=== PATIENT | female | born 1965 | race Caucasian/White ===

== ENCOUNTER 2017-09-09 17:21 | Emergency (ER) | payer OTHER ==
[~2017-09-09] VITALS: Ht 177.8 cm; Wt 77.1 kg
[~2017-09-09 17:21] MED LIST: MULT-506 PO; TIZA4CAP PO; WARF-237 PO; WARF10TA PO
[2017-09-09 17:23] VITALS: TEMP 36.9; Ht 177.8 cm; Wt 77.1 kg
[2017-09-09] MEDS ORDERED: MoRPHine SULFATE 4 MG/ML 1 ML CARP\\VIAL IV STA (17:41)
[2017-09-09] MEDS ORDERED: SODIUM CHLORIDE 0.9% 1000ML 1,000 ML IV STA (17:41)
[2017-09-09] MEDS ORDERED: CYAN250T PO (17:46)
[2017-09-09] MEDS ORDERED: CHOL1000 PO (17:46)
[2017-09-09] MEDS ORDERED: WARF-237 PO (17:47)
--- NOTE | 2017-09-09 17:49 | EMERGENCY ROOM VISIT NOTE ---
History Report prepared by Wyatt: Cate Prajapati Under the Supervision of: Dr. Scar Echevarria M.D. First contact with patient: 17:28 Chief Complaint: WRIST PAIN Stated Complaint: FELL,WRIST PAIN AND LOW BACK History of Present Illness The patient is a 51 year old female who presents to the Emergency Room with complaints of persistent wrist pain that started a couple of hours ago. The patient rates her pain a 9/10 in severity. The patient states she was getting her kayaks off of the roof of her jeep when she fell on to her right side. She notes she tried to catch her fall with her right arm. She is currently feeling pain in her right wrist, elbow, and lower back. She states she had a bad fall in 2006 that affected her back. When she was getting treated for the injury, they found a blood clot so they put her on blood thinners. They were unsure if the blood clot was related to the fall. The patient states after she fell today , she was unable to get up and had to wait a while for her daughter to come help her. She denies any leg weakness, HS or LOC. Source of History: patient Onset: a couple of hours ago Position: wrist (right) Symptom Intensity: 9/10 Timing: other (persistent) Associated Symptoms: + back pain, No weakness Note: Additional symptoms: elbow pain. Review of Systems See HPI for pertinent positives and negatives. A total of ten systems were reviewed and were otherwise negative. Past Medical & Surgical Portal vein blood clot. Family History No pertinent family history Social History Smoking Status: Current Some Day Smoker Alcohol Use: occasionally Housing Status: lives with family Occupation Status: employed Current/Historical Medications Scheduled Cholecalciferol (Vitamin D3), 1 DOSE PO DAILY Cyanocobalamin (Vitamin B-12), 1 DOSE PO DAILY Warfarin Sod (Coumadin), 5 MG PO WK Warfarin Sod (Coumadin), 10 MG PO [id number] Scheduled PRN Lidocaine (Lidoderm Patch 5%), 1 PATCH TD DAILY PRN for Pain Oxycodone Ir (Roxicodone Ir), 1-2 TAB PO Q4H PRN for Pain Allergies Coded Allergies: Heparin (Verified Allergy, Severe, "lethal", 09/09/17) Sulfa Antibiotics (Verified Allergy, Mild, HIVES, RASH, 09/09/17) Sulfamethoxazole (Unverified Allergy, Mild, HIVES, RASH, 09/09/17) Trimethoprim (Unverified Allergy, Mild, HIVES, RASH, 09/09/17) Physical Exam Vital Signs Date Time Temp Pulse Resp B/P (MAP) Pulse Ox O2 Delivery O2 Flow Rate FiO2 09/09/17 21:02 89 18 103/72 97 Room Air 09/09/17 20:02 98 20 118/72 100 Room Air 09/09/17 17:23 36.9 99 18 164/119 98 Room Air Physical Exam GENERAL: Awake, alert, uncomfortable appearing, in no distress HENT: Normocephalic, atraumatic. Oropharynx unremarkable. EYES: Normal conjunctiva. Sclera non-icteric. NECK: Supple. No nuchal rigidity. FROM. No JVD. RESPIRATORY: Clear to auscultation. CARDIAC: Regular rate, normal rhythm. Extremities warm and well perfused. Pulses equal. ABDOMEN: Soft, non-distended. No tenderness to palpation. No rebound or guarding. No masses. BACK: Lower T-spine and upper L-spine contusion with mild tenderness. Right superior gluteal area of fluctuance with mild ttp c/w hematoma. RECTAL: Deferred. MUSCULOSKELETAL: Chest examination reveals no tenderness. There is no CVA tenderness to palpation. EXTREMITIES: Swelling to dorsal/radial aspect of right wrist/hand with small hematoma. No snuff box ttp. Mild ttp to radial aspect of proximal forearm. NEURO: Normal sensorium. No sensory or motor deficits noted. Strength 5/5 and SILT x 4 ext. SKIN: No rash or jaundice noted. Medical Decision & Procedures ER Provider Diagnostic Interpretation: Radiology results as stated below per my review and radiologist interpretation: R FOREARM 2 VIEWS ROUTINE, R ELBOW MIN 3 VIEWS ROUTINE, R WRIST MIN 3 VIEWS ROUTINE, R HAND MIN 3 VIEWS ROUTINE HISTORY: 51 years-old Female pain, fall acute trauma of the right upper extremity status post fall COMPARISON: None available TECHNIQUE: 3 views of the right elbow, 2 views of the right forearm, 4 views the right wrist and 3 views of the right hand FINDINGS: ELBOW: Mild marginal spurring of the lateral epicondyle. No acute fracture or dislocation. No large joint effusion or opaque foreign body. Radial head appears intact. FOREARM: Bones are mildly demineralized. Acute fracture of the distal radius. Proximal radius and ulna are intact. Mild soft tissue swelling about the distal radius. WRIST: There is an acute nondisplaced transversely oriented fracture of the distal radial metaphysis with possible extension into the distal radioulnar joint as seen on the PA view. No angulation. Distal ulna appears intact. Mild first carpometacarpal and triscaphe osteoarthritis. Bones are mildly demineralized. Mild soft tissue swelling about the distal forearm and wrist. HAND: Bones are mildly demineralized. No acute fracture or dislocation. Mild degenerative changes with interphalangeal joint space narrowing and subchondral sclerosis. IMPRESSION: 1. Acute nondisplaced transversely oriented fracture of the distal radial metaphysis with possible extension into the distal radioulnar joint. Mild associated soft tissue swelling. 2. The degree of bone demineralization is greater than expected for patient's stated age. 3. Mild degenerative changes about the hand and wrist without additional acute fracture or dislocation identified within the right upper extremity. The above report was generated using voice recognition software. It may contain grammatical, syntax or spelling errors. Electronically signed by: Kyaw Sosa M.D. 09/09/2017 7:02 PM Dictated Date/Time: 09/09/2017 6:57 PM R FOREARM 2 VIEWS ROUTINE, R ELBOW MIN 3 VIEWS ROUTINE, R WRIST MIN 3 VIEWS ROUTINE, R HAND MIN 3 VIEWS ROUTINE HISTORY: 51 years-old Female pain, fall acute trauma of the right upper extremity status post fall COMPARISON: None available TECHNIQUE: 3 views of the right elbow, 2 views of the right forearm, 4 views the right wrist and 3 views of the right hand FINDINGS: ELBOW: Mild marginal spurring of the lateral epicondyle. No acute fracture or dislocation. No large joint effusion or opaque foreign body. Radial head appears intact. FOREARM: Bones are mildly demineralized. Acute fracture of the distal radius. Proximal radius and ulna are intact. Mild soft tissue swelling about the distal radius. WRIST: There is an acute nondisplaced transversely oriented fracture of the distal radial metaphysis with possible extension into the distal radioulnar joint as seen on the PA view. No angulation. Distal ulna appears intact. Mild first carpometacarpal and triscaphe osteoarthritis. Bones are mildly demineralized. Mild soft tissue swelling about the distal forearm and wrist. HAND: Bones are mildly demineralized. No acute fracture or dislocation. Mild degenerative changes with interphalangeal joint space narrowing and subchondral sclerosis. IMPRESSION: 1. Acute nondisplaced transversely oriented fracture of the distal radial metaphysis with possible extension into the distal radioulnar joint. Mild associated soft tissue swelling. 2. The degree of bone demineralization is greater than expected for patient's stated age. 3. Mild degenerative changes about the hand and wrist without additional acute fracture or dislocation identified within the right upper extremity. The above report was generated using voice recognition software. It may contain grammatical, syntax or spelling errors. Electronically signed by: Kyaw Sosa M.D. 09/09/2017 7:02 PM Dictated Date/Time: 09/09/2017 6:57 PM R FOREARM 2 VIEWS ROUTINE, R ELBOW MIN 3 VIEWS ROUTINE, R WRIST MIN 3 VIEWS ROUTINE, R HAND MIN 3 VIEWS ROUTINE HISTORY: 51 years-old Female pain, fall acute trauma of the right upper extremity status post fall COMPARISON: None available TECHNIQUE: 3 views of the right elbow, 2 views of the right forearm, 4 views the right wrist and 3 views of the right hand FINDINGS: ELBOW: Mild marginal spurring of the lateral epicondyle. No acute fracture or dislocation. No large joint effusion or opaque foreign body. Radial head appears intact. FOREARM: Bones are mildly demineralized. Acute fracture of the distal radius. Proximal radius and ulna are intact. Mild soft tissue swelling about the distal radius. WRIST: There is an acute nondisplaced transversely oriented fracture of the distal radial metaphysis with possible extension into the distal radioulnar joint as seen on the PA view. No angulation. Distal ulna appears intact. Mild first carpometacarpal and triscaphe osteoarthritis. Bones are mildly demineralized. Mild soft tissue swelling about the distal forearm and wrist. HAND: Bones are mildly demineralized. No acute fracture or dislocation. Mild degenerative changes with interphalangeal joint space narrowing and subchondral sclerosis. IMPRESSION: 1. Acute nondisplaced transversely oriented fracture of the distal radial metaphysis with possible extension into the distal radioulnar joint. Mild associated soft tissue swelling. 2. The degree of bone demineralization is greater than expected for patient's stated age. 3. Mild degenerative changes about the hand and wrist without additional acute fracture or dislocation identified within the right upper extremity. The above report was generated using voice recognition software. It may contain grammatical, syntax or spelling errors. Electronically signed by: Kyaw Sosa M.D. 09/09/2017 7:02 PM Dictated Date/Time: 09/09/2017 6:57 PM R FOREARM 2 VIEWS ROUTINE, R ELBOW MIN 3 VIEWS ROUTINE, R WRIST MIN 3 VIEWS ROUTINE, R HAND MIN 3 VIEWS ROUTINE HISTORY: 51 years-old Female pain, fall acute trauma of the right upper extremity status post fall COMPARISON: None available TECHNIQUE: 3 views of the right elbow, 2 views of the right forearm, 4 views the right wrist and 3 views of the right hand FINDINGS: ELBOW: Mild marginal spurring of the lateral epicondyle. No acute fracture or dislocation. No large joint effusion or opaque foreign body. Radial head appears intact. FOREARM: Bones are mildly demineralized. Acute fracture of the distal radius. Proximal radius and ulna are intact. Mild soft tissue swelling about the distal radius. WRIST: There is an acute nondisplaced transversely oriented fracture of the distal radial metaphysis with possible extension into the distal radioulnar joint as seen on the PA view. No angulation. Distal ulna appears intact. Mild first carpometacarpal and triscaphe osteoarthritis. Bones are mildly demineralized. Mild soft tissue swelling about the distal forearm and wrist. HAND: Bones are mildly demineralized. No acute fracture or dislocation. Mild degenerative changes with interphalangeal joint space narrowing and subchondral sclerosis. IMPRESSION: 1. Acute nondisplaced transversely oriented fracture of the distal radial metaphysis with possible extension into the distal radioulnar joint. Mild associated soft tissue swelling. 2. The degree of bone demineralization is greater than expected for patient's stated age. 3. Mild degenerative changes about the hand and wrist without additional acute fracture or dislocation identified within the right upper extremity. The above report was generated using voice recognition software. It may contain grammatical, syntax or spelling errors. Electronically signed by: Kyaw Sosa M.D. 09/09/2017 7:02 PM Dictated Date/Time: 09/09/2017 6:[address] WITH CONTRAST HISTORY: Acute chest trauma status post fall pain, fall on coumadin TECHNIQUE: Multiaxial CT images of the chest were performed following the intravenous administration of contrast. 115 mL Optiray 320 IV contrast administered. A dose lowering technique was utilized adhering to the principles of ALARA. COMPARISON: CT abdomen and pelvis of same day, chest CT 07/09/2011. FINDINGS: No dominant thyroid nodule identified. Ill-defined soft tissue density of the anterior mediastinum may reflect residual thymic tissue, unchanged. No pathologic adenopathy about the chest. Heart is normal in size without pericardial effusion. The thoracic aorta is normal in course and caliber without dissection or aneurysm. The opacified pulmonary arterial tree is unremarkable. There is no pneumothorax or pleural effusion. Mild dependent bibasilar atelectasis. Central airways are patent. Lung paez are otherwise clear. No acute abnormality of the imaged upper abdomen. Splenomegaly redemonstrated. 1.9 cm low attenuating lesion of the subserosal right hepatic lobe appears unchanged suggesting benign etiology. Soft tissues are unremarkable. The bones of the chest appear intact. IMPRESSION: 1. No acute intrathoracic abnormality identified. No pneumothorax. 2. No acute thoracic fracture identified. 3. Splenomegaly. Electronically signed by: Kyaw Sosa M.D. 09/09/2017 7:51 PM Dictated Date/Time: 09/09/2017 7:46 PM ABDOMEN AND PELVIS CT WITH IV CONTRAST CT DOSE: 809.01 mGy.cm HISTORY: Acute low back pain and abdominal trauma status post fall pain, lower back hematoma TECHNIQUE: Multiaxial CT images of the abdomen and pelvis were performed following the use of intravenous contrast. 116 mL Optiray 320 IV contrast was administered A dose lowering technique was utilized adhering to the principles of ALARA. COMPARISON STUDY: CT chest of same day, CT abdomen and pelvis 07/09/2011. FINDINGS: Lung bases are generally clear. No pneumoperitoneum. Study is limited secondary to patient positioning of right upper extremity. Imaged inferior cardiac chambers are unremarkable. Spleen is moderately enlarged, 15 cm in length, unchanged from prior. Collateral vessels are again seen adjacent to the splenic hilum and within the upper abdomen. Circumscribed 1.9 cm low attenuating lesion of the subserosal right hepatic lobe is unchanged from comparison study 07/09/2011 suggesting benign etiology such as a hemangioma. The previously noted additional low attenuating lesions of the inferior right hepatic lobe are not as well seen on today's study. There is mild intrahepatic biliary ductal dilation which appears unchanged. Gallbladder, pancreas and adrenal glands are unremarkable. Kidneys, ureters and urinary bladder are unremarkable. Nonspecific 4 mm low attenuating lesion of the interpolar right kidney suggests cyst. Prior hysterectomy. The dominant aorta is normal in both course and caliber. There is no bulky adenopathy identified. There is no bowel obstruction or focal bowel wall thickening. Nondilated fecalized loops of small bowel are seen within the lower abdomen and pelvis. The appendix appears normal. No retroperitoneal hematoma. Soft tissues are unremarkable. The bones appear intact. No acute fracture identified. IMPRESSION: 1. No acute abnormality identified involving the abdomen or pelvis. No evidence of acute solid organ injury. 2. Several nondilated fecalized loops of small bowel are seen within the lower abdomen and pelvis, suggesting decreased small bowel transit without evidence of bowel obstruction. 3. Unchanged splenomegaly. 4. Stable appearance of the liver as above. 5. Prior hysterectomy. Electronically signed by: Kyaw Sosa M.D. 09/09/2017 8:00 PM Dictated Date/Time: 09/09/2017 7:52 PM Laboratory Results 09/09/17 18:01 Red Blood Count 5.35, Mean Corpuscular Volume 82.8, Mean Corpuscular Hemoglobin 26.9, Mean Corpuscular Hemoglobin Concent 32.5, Mean Platelet Volume 9.7, Neutrophils (%) (Auto) 64.1, Lymphocytes (%) (Auto) 22.4, Monocytes (%) (Auto) 8.4, Eosinophils (%) (Auto) 4.1, Basophils (%) (Auto) 0.2, Neutrophils # (Auto) 5.87, Lymphocytes # (Auto) 2.05, Monocytes # (Auto) 0.77, Eosinophils # (Auto) 0.38, Basophils # (Auto) 0.02 09/09/17 18:01 Test 09/09/17 18:01 White Blood Count 9.16 K/uL (4.8-10.8) Red Blood Count 5.35 M/uL (4.2-5.4) Hemoglobin 14.4 g/dL (12.0-16.0) Hematocrit 44.3 % (37-47) Mean Corpuscular Volume 82.8 fL (80-100) Mean Corpuscular Hemoglobin 26.9 pg (25-34) Mean Corpuscular Hemoglobin Concent 32.5 g/dl (32-36) Platelet Count 381 K/uL (130-400) Mean Platelet Volume 9.7 fL (7.4-10.4) Neutrophils (%) (Auto) 64.1 % Lymphocytes (%) (Auto) 22.4 % Monocytes (%) (Auto) 8.4 % Eosinophils (%) (Auto) 4.1 % Basophils (%) (Auto) 0.2 % Neutrophils # (Auto) 5.87 K/uL (1.4-6.5) Lymphocytes # (Auto) 2.05 K/uL (1.2-3.4) Monocytes # (Auto) 0.77 K/uL (0.11-0.59) Eosinophils # (Auto) 0.38 K/uL (0-0.5) Basophils # (Auto) 0.02 K/uL (0-0.2) RDW Standard Deviation 43.0 fL (36.4-46.3) RDW Coefficient of Variation 14.2 % (11.5-14.5) Immature Granulocyte % (Auto) 0.8 % Immature Granulocyte # (Auto) 0.07 K/uL (0.00-0.02) Prothrombin Time 21.4 SECONDS (9.0-12.0) Prothromb Time International Ratio 1.9 (0.9-1.1) Anion Gap 7.0 mmol/L (3-11) Est Creatinine Clear Calc Drug Dose 124.7 ml/min Estimated GFR () 124.7 Estimated GFR (Non- 107.6 BUN/Creatinine Ratio 31.2 (10-20) Calcium Level 9.3 mg/dl (8.5-10.1) Total Bilirubin 0.4 mg/dl (0.2-1) Direct Bilirubin < 0.1 mg/dl (0-0.2) Aspartate Amino Transf (AST/SGOT) 33 U/L (15-37) Alanine Aminotransferase (ALT/SGPT) 54 U/L (12-78) Alkaline Phosphatase 127 U/L (45-117) Total Protein 8.0 gm/dl (6.4-8.2) Albumin 4.2 gm/dl (3.4-5.0) Lipase 192 U/L (73-393) Laboratory results reviewed by me Medications Administered Medications (Trade) Dose Ordered Sig/Bal Route Start Time Stop Time Status Last Admin Dose Admin Morphine Sulfate (MoRPHine SULFATE INJ) 4 mg NOW STAT IV 09/09/17 17:41 09/09/17 17:52 DC 09/09/17 18:01 4 MG Lidocaine (Lidoderm Patch 5%) 1 patch NOW STAT TD 09/09/17 20:38 09/09/17 20:39 DC 09/09/17 20:56 1 PATCH Oxycodone HCl (Roxicodone Immediate Rel 5MG Home Pack) 1 homepack UD ONCE PO 09/09/17 21:00 09/09/17 21:01 DC 09/09/17 21:00 1 HOMEPACK ED Course 1728: The patient was evaluated in room A2. A complete history and physical exam was performed. 1741: Morphine Sulfate 4 mg IV, Sodium Chloride 1000 ml @ 125 mls/hr IV. Medical Decision I reviewed the patient's past medical history, medications, and the nursing notes as described above. The patient's presentation and history were concerning for Soft tissue injury, fracture, hematoma. The patient is a 51-year-old woman with a past medical history of a portal vein thrombosis on lifelong Coumadin who presents to emergency department with right hand and wrist pain as well as low back pain after falling when taking her kayak off of her car per history of present illness. Arrival the patient is uncomfortable but in no acute distress she is afebrile with stable vital signs. Moderate tenderness to the radial aspect of the dorsum of the right hand and wrist with a small overlying hematoma. She has a small contusion to the lower T and upper L-spine with mild tenderness to palpation as well as a 5 cm right superior gluteal area of fluctuance c/w hematoma with mild tenderness to palpation. Otherwise distal perfusion, motor, sensory intact in all 4 extremities. Films of the right upper extremity demonstrated a nondisplaced radial fracture with question of extension into the joint. CT chest/abdomen and pelvis unremarkable. TL spine CT with chronic findings and no acute abnormalities. INR 1.9 and labs otherwise unremarkable. Patient follows with [facility] for her chronic back pain and so will have her follow up there for her distal radius fracture. Findings and plan for follow-up reviewed with patient. Patient agreeable and d/c'd per discharge instructions. Medication Reconcilliation Current Medication List: was personally reviewed by me Blood Pressure Screening Patient's blood pressure: Elevated blood pressure Blood pressure disposition: Elevated BP felt to be situational Impression Primary Impression: Distal radius fracture, right Additional Impression: Hematoma Scribe Attestation The scribe's documentation has been prepared under my direction and personally reviewed by me in its entirety. I confirm that the note above accurately reflects all work, treatment, procedures, and medical decision making performed by me. Departure Information Dispostion Home / Self-Care Prescriptions Lidocaine (Lidoderm Patch 5%) 1 Ea Tdsy 1 PATCH TD DAILY Y for Pain for 7 Days, #7 PATCH Apply painful area for 12 hours, then remove for 12 hours. Prov: Scar Echevarria M.D. 09/09/17 Oxycodone Ir (Roxicodone Ir) 5 Mg Tab 1-2 TAB PO Q4H Y for Pain, #10 TAB Prov: Scar Echevarria M.D. 09/09/17 Patient Instructions Distal Radius Fx, ED Hematoma, ED ELEANOR, My [facility] Additional Instructions Please follow up with your orthopedics next week for re-evaluation. You were found to have a wrist fracture (distal radius fracture). Otherwise, your exam, lab results, CT scans of your chest, abdomen/pelvis, thoracic and lumbar spine did not show signs of an emergent condition at this time. Acetaminophen and Lidoderm patch for pain as needed. Oxycodone for breakthrough pain as needed. John bandage for compression of lower back bruising. RICE therapy. Return to the emergency department for worsening symptoms as described in the accompanying instructions. Problem Qualifiers
[2017-09-09 18:14] LABS: BASO % 0.2 %; BASO ABS # 0.02 K/uL (0-0.2); COMPLETE YES; EOS % 4.1 %; HEMATOCRIT 44.3 % (37-47); IG% 0.8 %; LYMPH % 22.4 %; LYMPH ABS # 2.05 K/uL (1.2-3.4); MEAN CELL VOLUME 82.8 fL (80-100); MEAN CORPUSCULAR HEMOGLOBIN 26.9 pg (25-34); MEAN CORPUSCULAR HGB CONC 32.5 g/dl (32-36); MEAN PLATELET VOLUME 9.7 fL (7.4-10.4); MONO % 8.4 %; NEUT % 64.1 %; PLATELET COUNT 381 K/uL (130-400); RED BLOOD COUNT 5.35 M/uL (4.2-5.4); WHITE BLOOD COUNT 9.16 K/uL (4.8-10.8)
[2017-09-09 18:24] LABS: INR 1.9 (0.9-1.1); PROTHROMBIN TIME (PATIENT) 21.4 SECONDS (9.0-12.0)
[2017-09-09 18:29] LABS: ALT/SGPT 54 U/L (12-78); AST/SGOT 33 U/L (15-37); BLOOD UREA NITROGEN 19 mg/dl (7-18); BUN/CREATININE RATIO 31.2 (10-20); CALCIUM 9.3 mg/dl (8.5-10.1); CARBON DIOXIDE 29 mmol/L (21-32); CHLORIDE 104 mmol/L (98-107); CREATININE 0.59 mg/dl (0.60-1.20); GLUCOSE 99 mg/dl (70-99); SODIUM 140 mmol/L (136-145)
[2017-09-09 18:32] LABS: ALKALINE PHOSPHATASE 127 U/L (45-117)
--- NOTE | 2017-09-09 19:04 | DIAGNOSTIC IMAGING REPORT ---
R FOREARM 2 VIEWS ROUTINE, R ELBOW MIN 3 VIEWS ROUTINE, R WRIST MIN 3 VIEWS ROUTINE, R HAND MIN 3 VIEWS ROUTINE HISTORY: 51 years-old Female pain, fall acute trauma of the right upper extremity status post fall COMPARISON: None available TECHNIQUE: 3 views of the right elbow, 2 views of the right forearm, 4 views the right wrist and 3 views of the right hand FINDINGS: ELBOW: Mild marginal spurring of the lateral epicondyle. No acute fracture or dislocation. No large joint effusion or opaque foreign body. Radial head appears intact. FOREARM: Bones are mildly demineralized. Acute fracture of the distal radius. Proximal radius and ulna are intact. Mild soft tissue swelling about the distal radius. WRIST: There is an acute nondisplaced transversely oriented fracture of the distal radial metaphysis with possible extension into the distal radioulnar joint as seen on the PA view. No angulation. Distal ulna appears intact. Mild first carpometacarpal and triscaphe osteoarthritis. Bones are mildly demineralized. Mild soft tissue swelling about the distal forearm and wrist. HAND: Bones are mildly demineralized. No acute fracture or dislocation. Mild degenerative changes with interphalangeal joint space narrowing and subchondral sclerosis. IMPRESSION: 1. Acute nondisplaced transversely oriented fracture of the distal radial metaphysis with possible extension into the distal radioulnar joint. Mild associated soft tissue swelling. 2. The degree of bone demineralization is greater than expected for patient's stated age. 3. Mild degenerative changes about the hand and wrist without additional acute fracture or dislocation identified within the right upper extremity. The above report was generated using voice recognition software. It may contain grammatical, syntax or spelling errors. Electronically signed by: Kyaw Sosa M.D. 09/09/2017 7:02 PM Dictated Date/Time: 09/09/2017 6:57 PM
[2017-09-09] MEDS ORDERED: OPTIRAY 320 IV PRN (19:30)
--- NOTE | 2017-09-09 19:53 | DIAGNOSTIC IMAGING REPORT ---
CHEST CT WITH CONTRAST HISTORY: Acute chest trauma status post fall pain, fall on coumadin TECHNIQUE: Multiaxial CT images of the chest were performed following the intravenous administration of contrast. 115 mL Optiray 320 IV contrast administered. A dose lowering technique was utilized adhering to the principles of ALARA. COMPARISON: CT abdomen and pelvis of same day, chest CT 07/09/2011. FINDINGS: No dominant thyroid nodule identified. Ill-defined soft tissue density of the anterior mediastinum may reflect residual thymic tissue, unchanged. No pathologic adenopathy about the chest. Heart is normal in size without pericardial effusion. The thoracic aorta is normal in course and caliber without dissection or aneurysm. The opacified pulmonary arterial tree is unremarkable. There is no pneumothorax or pleural effusion. Mild dependent bibasilar atelectasis. Central airways are patent. Lung paez are otherwise clear. No acute abnormality of the imaged upper abdomen. Splenomegaly redemonstrated. 1.9 cm low attenuating lesion of the subserosal right hepatic lobe appears unchanged suggesting benign etiology. Soft tissues are unremarkable. The bones of the chest appear intact. IMPRESSION: 1. No acute intrathoracic abnormality identified. No pneumothorax. 2. No acute thoracic fracture identified. 3. Splenomegaly. Electronically signed by: Kyaw Sosa M.D. 09/09/2017 7:51 PM Dictated Date/Time: 09/09/2017 7:46 PM
--- NOTE | 2017-09-09 20:02 | DIAGNOSTIC IMAGING REPORT ---
ABDOMEN AND PELVIS CT WITH IV CONTRAST CT DOSE: 809.01 mGy.cm HISTORY: Acute low back pain and abdominal trauma status post fall pain, lower back hematoma TECHNIQUE: Multiaxial CT images of the abdomen and pelvis were performed following the use of intravenous contrast. 116 mL Optiray 320 IV contrast was administered A dose lowering technique was utilized adhering to the principles of ALARA. COMPARISON STUDY: CT chest of same day, CT abdomen and pelvis 07/09/2011. FINDINGS: Lung bases are generally clear. No pneumoperitoneum. Study is limited secondary to patient positioning of right upper extremity. Imaged inferior cardiac chambers are unremarkable. Spleen is moderately enlarged, 15 cm in length, unchanged from prior. Collateral vessels are again seen adjacent to the splenic hilum and within the upper abdomen. Circumscribed 1.9 cm low attenuating lesion of the subserosal right hepatic lobe is unchanged from comparison study 07/09/2011 suggesting benign etiology such as a hemangioma. The previously noted additional low attenuating lesions of the inferior right hepatic lobe are not as well seen on today's study. There is mild intrahepatic biliary ductal dilation which appears unchanged. Gallbladder, pancreas and adrenal glands are unremarkable. Kidneys, ureters and urinary bladder are unremarkable. Nonspecific 4 mm low attenuating lesion of the interpolar right kidney suggests cyst. Prior hysterectomy. The dominant aorta is normal in both course and caliber. There is no bulky adenopathy identified. There is no bowel obstruction or focal bowel wall thickening. Nondilated fecalized loops of small bowel are seen within the lower abdomen and pelvis. The appendix appears normal. No retroperitoneal hematoma. Soft tissues are unremarkable. The bones appear intact. No acute fracture identified. IMPRESSION: 1. No acute abnormality identified involving the abdomen or pelvis. No evidence of acute solid organ injury. 2. Several nondilated fecalized loops of small bowel are seen within the lower abdomen and pelvis, suggesting decreased small bowel transit without evidence of bowel obstruction. 3. Unchanged splenomegaly. 4. Stable appearance of the liver as above. 5. Prior hysterectomy. Electronically signed by: Kyaw Sosa M.D. 09/09/2017 8:00 PM Dictated Date/Time: 09/09/2017 7:52 PM
--- NOTE | 2017-09-09 20:08 | DIAGNOSTIC IMAGING REPORT ---
LUMBAR SPINE WITHOUT HISTORY: 51 years-old Female pain, fall acute back pain status post fall COMPARISON: CT abdomen and pelvis 07/09/2011 TECHNIQUE: Multiple axial CT images of the lumbar spine were obtained without contrast. A dose lowering technique was used consistent with the principals of ALARA. FINDINGS: There are 5 nonrib-bearing lumbar type vertebral segments. The bones are mildly demineralized, advanced for patient's stated age. 3 mm retrolisthesis L2 on L3 and 3 mm retrolisthesis L3 on L4 noted, likely degenerative in nature. Mild multilevel facet arthropathy and endplate spurring is noted. Broad-based posterior disc osteophyte complex formation noted at T12-L1 which flattens the ventral thecal sac. No high-grade central canal narrowing. Posterior elements also appear intact without acute fracture or subluxation. No high-grade foraminal narrowing identified. Sacrum and imaged iliac bones appear intact. No acute intra-abdominal, intrapelvic or paraspinal abnormality identified. IMPRESSION: 1. No acute fracture or subluxation of the lumbar spine. 2. 3 mm retrolisthesis L2 on L3 and L3 on L4, likely degenerative in nature. Mild multilevel facet arthropathy. 3. Broad-based posterior disc osteophyte complex formation at T12-L1 flattens the ventral thecal sac without high-grade central canal stenosis. The above report was generated using voice recognition software. It may contain grammatical, syntax or spelling errors. Electronically signed by: Kyaw Sosa M.D. 09/09/2017 8:07 PM Dictated Date/Time: 09/09/2017 8:00 PM
--- NOTE | 2017-09-09 20:15 | DIAGNOSTIC IMAGING REPORT ---
THORACIC SPINE WITHOUT HISTORY: 51 years-old Female pain, fall acute back pain that is post fall COMPARISON: CT lumbar spine of same day TECHNIQUE: Multiple axial CT images of the thoracic spine were obtained without contrast. A dose lowering technique was used consistent with the principals of ALARA. FINDINGS: The bones are mildly demineralized. Advanced for patient's stated age. Mild multilevel endplate spurring and facet arthropathy. Broad-based posterior disc osteophyte complex formation seen at T12-L1. No high-grade central canal or foraminal narrowing identified. No acute rib fracture identified. No pneumothorax. No acute intra-abdominal or paraspinal abnormality identified. IMPRESSION: 1. No acute fracture or subluxation. 2. Broad-based posterior disc osteophyte complex at T12-L1 without high-grade central canal or foraminal narrowing. 3. Mild bone demineralization appears advanced for patient's stated age. This could be correlated with a follow-up outpatient DEXA scan. The above report was generated using voice recognition software. It may contain grammatical, syntax or spelling errors. Electronically signed by: Kyaw Sosa M.D. 09/09/2017 8:13 PM Dictated Date/Time: 09/09/2017 8:07 PM
[2017-09-09] MEDS ORDERED: NF656 TD (20:32)
[2017-09-09] MEDS ORDERED: OXYC1TAB3 PO (20:32)
[2017-09-09] MEDS ORDERED: LIDODERM (LIDOCAINE) PATCH 5% TD STA (20:38)
[2017-09-09] MEDS ORDERED: OXYCODONE IR HOME PACK PO ONE (21:00)
[2017-09-09 21:02] VITALS: BP 103/72; PULSE 89; O2SAT 97
== END 2017-09-09 21:04 | disposition home or self-care (01) ==
LOC: C.EDB 17:21 → C.EDA 21:04
DX: S52.501A Unspecified fracture of the lower end of right radius, initial encounter for closed fracture (principal); W18.39XA Other fall on same level, initial encounter; Y93.89 Activity, other specified; Y99.8 Other external cause status; F17.200 Nicotine dependence, unspecified, uncomplicated; Z91.81 History of falling; Z86.718 Personal history of other venous thrombosis and embolism; Z79.01 Long term (current) use of anticoagulants

== ENCOUNTER → 2017-12-28 | Outpatient (CLI) | payer OTHER ==
[~2017-12-28] MED LIST changes: +CHOL1000 PO; +CYAN250T PO; -MULT-506 PO; +NF656 TD; +OXYC1TAB3 PO; -TIZA4CAP PO; -WARF10TA PO
== END | disposition home or self-care (01) ==
LOC: C.LAB1850 16:52
PROVIDERS: ATTEND Physician Assistant
DX: E05.90 Thyrotoxicosis, unspecified without thyrotoxic crisis or storm (principal)

== ENCOUNTER → 2018-03-08 | Outpatient (CLI) | payer OTHER | END | disposition home or self-care (01) | LOC: C.LAB 18:25 | PROVIDERS: ATTEND Internal Medicine Endocrinology, Diabetes & Metabolism | DX: E05.90 Thyrotoxicosis, unspecified without thyrotoxic crisis or storm (principal); M81.0 Age-related osteoporosis without current pathological fracture ==

== ENCOUNTER 2020-04-13 01:22 | Inpatient (IN) ==
--- OUTSIDE RECORDS SUMMARY | 2020-04-13 01:25 | External Medical Summary | Continuity of Care Document ---
:1965 Author Name Cindy Reyes, Provider Address Unavailable Unavailable , Care Team Providers Name Role Phone Unavailable Unavailable Unavailable NEVIN DE SANTIAGO Unavailable Unavailable Unavailable Unavailable Unavailable Problems History of hyperthyroidism (V12.29) (Z86.39) Status: Resolved Anxiety (300.00) (F41.9) Graves disease (242.00) (E05.00) Menopausal symptoms (627.2) (N95.1) Osteoporosis (733.00) (M81.0) Allergies and Adverse Reactions Bactrim (Allergy) heparin (Allergy) Bee sting (Allergy) Medications Coumadin 5 MG Oral Tablet; Take 2 tablets daily except one tablet on Sun. , M.D. Start: 06-Dec-2017 Refills: 0 [facility] Vitamin B-12 1000 MCG Oral Tablet; TAKE 1 TABLET DAILY A S DIRECTED. , M.D. Start: 06-Dec-2017 Refills: 0 Vitamin D 1000 UNIT TABS; TAKE 1 TABLET DAILY. , M.D. Start: 06-Dec-2017 Refills: 0 Multi-Day Oral Tablet; TAKE 1 TABLET DAILY. , M.D. Start: 16-Apr-2018 Refills: 0 Procedures Procedures not documented Immunizations Immunizations not documented Family History Mother Family history of goiter (V18.19) (Z83.49) Status: Active Social History - Smoking Status Ex-smoker Plan of Treatment Planned Observations Planned Goals not documented Results No Known Results Results not documented Encounters Appointment; Chava Solis M.D. 16-Apr-2018 8:00 Encounter Diagnosis: Problem not documented
--- NOTE | 2020-04-13 01:47 | Emergency Department Note ---
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 MRI of the L-spine shows significant degeneration at the level of L2-L3. The patient has no lower extremity weakness or decreased reflexes in that leg on the right but she does have intractable back pain and is unable to go home. I discussed the case with the [facility] group and they will evaluate for further management. The patient had a positive COVID exposure but her COVID testing is negative. Triage Nursing notes reviewed and agree them. Prior medical records reviewed Vital Signs: reviewed and remarkable for no significant abnormalities Differential diagnosis: Acute disc herniation, epidural abscess, epidural mass, COVID-19, cauda equina syndrome ER treatment provided: IV Dilaudid x3, IV Toradol Laboratory studies: See below Imaging studies:as per Stat Rad MRI L-spine: L2-L3: 12.5 mm x 7 mm x 10 mm T2 hyperintense right subarticular superior disc extrusion superimposed on disc osteophyte complex which effaces the right lateral recess causing mass-effect on the traversing nerve roots. Mild spinal canal stenosis without significant neuroforaminal stenosis. Additional multilevel mild degenerative disc disease without cauda equina nerve root compression or significant spinal canal/neural foraminal stenosis. Incidental findings: Multilevel facet arthropathy. HPI: 54/F arrives for evaluation of severe right-sided low back pain. The patient suffered a back injury in 2008 for which she has been followed by Dr. Rodriges for quite some time. The patient has been having an exacerbation of this back pain since as she describes it because of working at home and all the sitting that she has been doing. She was scheduled to have an MRI next week of her low back to reassess the situation but she had to cancel the MRI because her daughter was diagnosed with COVID-19. The patient herself had developed fever and symptoms 1 week ago. The patient had a fever as recent as yesterday. However in the past 24 hours, the patient states that her back pain has dramatically worsened. For this exacerbation of the back pain in the past couple of weeks, she has been using baclofen and prednisone with no significant relief. The patient called EMS because the pain was so severe. They gave her fentanyl intranasally in the ambulance with only minimal relief. ROS: See above HPI for pertinent positives & negatives. A total of 10 systems reviewed and were otherwise negative. PAST MEDICAL HISTORY:See Below PAST SURGICAL HISTORY:See Below FAMILY HISTORY:See Below SOCIAL HISTORY:See Below HOME MEDICATIONS:See list ALLERGIES:See list VITALS:See Below PHYSICAL EXAMINATION: HEENT: Head - normocephalic and atraumatic Pupils are equal, round, and reactive to light. Extraocular eye muscles are intact, and sclera are anicteric. Nose - moist nasal mucosa without discharge. Mouth - moist buccal mucosa. Oropharynx is nonerythematous and there is no tonsillar exudate or edema noted. Neck: Supple; no cervical lymphadenopathy or thyromegaly Heart: Regular rate and rhythm. There is a normal S1 and S2 with no murmurs, clicks, or gallops appreciated. Lungs: Clear to auscultation bilaterally with no wheezes, rales, or rhonchi. Abdomen: Soft, completely nontender, nondistended, with good bowel sounds. There are no palpable pulsatile masses or hepatosplenomegaly. There is no guarding, rigidity, or rebound noted. Extremities: No evidence of cyanosis, clubbing, or edema. There are easily palpable peripheral pulses. Skin: warm and dry with good turgor and no rashes. The patient has normal muscle strength in both lower extremities and normal patellar reflexes. Back: Patient has obvious first-degree bates over the right low back and right buttocks from using heating pad. She has significant discomfort with palpation over the right paraspinous muscles of the lumbar spine. ED COURSE: Times/Reassessments: 0145: The patient was evaluated in C 12. A complete history and physical was performed. Patient was medicated with IV Dilaudid and Toradol. I have decided to put the patient into COVID precautions and test her for COVID-19 since she continues to have fevers and had a positive exposure to her daughter. She will go for MRI of the lumbar spine. She is still complaining of pain and was given an additional dose of IV Dilaudid 0350: The patient is still complaining of pain and was given an additional dose of IV Dilaudid and started on a normal saline drip. 0605: The patient is still having pain and does not feel that she can go home. I will discuss the case with the [facility] hospitalist group 0700: The patient is comfortable at this time. I reviewed the results of the covid testing with her and it is negative. Jenniffer Devi, Past Med/Surg History Social History Preferred Language: Venezuelan Communication Ability: Effective Jde Developer Required: No Beliefs That Will Affect Care: None Current Living Situation: Family Current Living Situation Comment: daughter lives with patient Other Information That Helps Us Care for You: No Feels Safe at Home: Yes Safety Concerns: Feels Safe At This Time Smoking Status: Former smoker Do You Dip or Chew Tobacco: No ; Second Hand Exposure: No ; Tobacco Cessation Education Requested by Patient: No Hx Alcohol Use: No Hx Substance Use: No Allergies Allergies Allergy/AdvReac Type Severity Reaction Status Date / Time heparin Allergy Severe "lethal" Verified 04/13/20 01:55 Sulfa (Sulfonamide Allergy Mild HIVES, RASH Verified 04/13/20 01:55 Antibiotics) sulfamethoxazole Allergy Mild HIVES, RASH Unverified 04/13/20 01:55 trimethoprim Allergy Mild HIVES, RASH Unverified 04/13/20 01:55 Milk Containing Products AdvReac Unknown Unknown Verified 04/13/20 09:32 meat AdvReac Unknown Uncoded 04/13/20 09:33 Home Meds Home Medications Medication Instructions Recorded Confirmed cholecalciferol (vitamin D3) 1,000 unit PO DAILY 07/05/18 04/13/20 [Vitamin D3] cyanocobalamin (vitamin B-12) 1,000 mcg PO DAILY 07/05/18 04/13/20 [Vitamin B-12] warfarin 10 mg PO DAILY 07/05/18 04/13/20 baclofen 20 mg PO TID PRN 04/13/20 04/13/20 Results & Data (ED) Vital Signs Vital Signs - 24 hr 04/13/20 01:34 04/13/20 03:08 04/13/20 03:30 Temperature 37.7 C H Temperature Source Oral Pulse Rate 84 Pulse Rate [Finger] Pulse Rate from SpO2 Sensor 77 79 Respiratory Rate 24 20 18 Respiratory Effort / Characteristics Non-Labored Spontaneous Respiratory Depth Normal Blood Pressure 131/66 116/67 121/63 Blood Pressure Mean 87 90 89 Pulse Oximetry 100 97 97 Oxygen Delivery Method Room Air Room Air Room Air Oxygen Flow Rate Sepsis Action Taken by Nursing No Action Required 04/13/20 03:48 04/13/20 04:00 04/13/20 04:30 Temperature 37.2 C Temperature Source Oral Pulse Rate 73 Pulse Rate [Finger] 76 Pulse Rate from SpO2 Sensor 77 73 Respiratory Rate 20 14 15 Respiratory Effort / Characteristics Non-Labored Spontaneous Respiratory Depth Normal Blood Pressure 116/83 102/64 Blood Pressure Mean 89 69 Pulse Oximetry 97 97 98 Oxygen Delivery Method Room Air Room Air Nasal Cannula Oxygen Flow Rate 2 Sepsis Action Taken by Nursing 04/13/20 06:09 04/13/20 06:30 04/13/20 07:00 Temperature Temperature Source Pulse Rate 70 75 79 Pulse Rate [Finger] Pulse Rate from SpO2 Sensor 80 Respiratory Rate 16 16 14 Respiratory Effort / Characteristics Respiratory Depth Blood Pressure 115/71 111/78 Blood Pressure Mean 84 91 Pulse Oximetry 96 92 98 Oxygen Delivery Method Room Air Room Air Oxygen Flow Rate Sepsis Action Taken by Nursing 04/13/20 07:01 04/13/20 07:30 04/13/20 08:00 Temperature Temperature Source Pulse Rate 90 66 69 Pulse Rate [Finger] Pulse Rate from SpO2 Sensor 89 65 72 Respiratory Rate 17 16 20 Respiratory Effort / Characteristics Respiratory Depth Blood Pressure 112/94 108/66 105/69 Blood Pressure Mean 100 77 73 Pulse Oximetry 97 97 98 Oxygen Delivery Method Room Air Room Air Oxygen Flow Rate Sepsis Action Taken by Nursing 04/13/20 08:38 04/13/20 09:00 04/13/20 09:01 Temperature Temperature Source Pulse Rate 74 62 61 Pulse Rate [Finger] Pulse Rate from SpO2 Sensor 65 61 Respiratory Rate 16 13 13 Respiratory Effort / Characteristics Respiratory Depth Blood Pressure 115/72 Blood Pressure Mean 84 Pulse Oximetry 94 93 Oxygen Delivery Method Oxygen Flow Rate Sepsis Action Taken by Nursing 04/13/20 09:30 04/13/20 09:31 Temperature Temperature Source Pulse Rate 63 62 Pulse Rate [Finger] Pulse Rate from SpO2 Sensor 63 61 Respiratory Rate 13 16 Respiratory Effort / Characteristics Respiratory Depth Blood Pressure 123/77 Blood Pressure Mean 84 Pulse Oximetry 94 94 Oxygen Delivery Method Oxygen Flow Rate Sepsis Action Taken by Nursing Laboratory Data Result diagrams: 04/13/20 02:35 04/13/20 02:35 Lab Results 04/13/20 04/13/20 04/13/20 Range/Units 02:35 02:35 02:35 WBC 7.12 (4.8-10.8) K/uL RBC 4.56 (4.2-5.4) M/uL Hgb 12.8 (12.0-16.0) g/dL Hct 38.8 (37-47) % MCV 85.1 (80-100) fL MCH 28.1 (25-34) pg MCHC 33.0 (32-36) g/dL RDW Std Deviation 45.3 (36.4-46.3) fL RDW Coeff of Jonathan 14.6 H (11.5-14.5) % Plt Count 275 (130-400) K/uL MPV 10.6 H (7.4-10.4) fL Immature Gran % (Auto) 0.1 % Neut % (Auto) 90.2 % Lymph % (Auto) 8.0 % [place] % (Auto) 1.5 % Eos % (Auto) 0.1 % Baso % (Auto) 0.1 % Immature Gran # (Auto) 0.01 (0.00-0.02) K/uL Neut # (Auto) 6.41 (1.4-6.5) K/uL Lymph # (Auto) 0.57 L (1.2-3.4) K/uL [place] # (Auto) 0.11 (0.11-0.59) K/uL Eos # (Auto) 0.01 (0-0.5) K/uL Baso # (Auto) 0.01 (0-0.2) K/uL PT 20.4 H (9.0-12.0) Seconds INR 2.0 H (0.9-1.1) Sodium 137 (136-145) mmol/L Potassium 3.3 L (3.5-5.1) mmol/L Chloride 104 (98-107) mmol/L Carbon Dioxide 27 (21-32) mmol/L Anion Gap 6.0 (3-11) BUN 15 (7-18) mg/dl Creatinine 0.78 (0.6-1.2) mg/dl Est Cr Clr Drug Dosing Not Reportable Est GFR ( Amer) 101.3 Est GFR (Non-Af Amer) 87.4 BUN/Creatinine Ratio 19.6 (10-20) Glucose 142 H (70-99) mg/dl Calcium 9.4 (8.5-10.1) mg/dl Total Bilirubin 0.7 (0.2-1) mg/dl AST 14 L (15-37) U/L ALT 26 (12-78) U/L Alkaline Phosphatase 79 (45-117) U/L Total Protein 7.4 (6.4-8.2) gm/dl Albumin 4.1 (3.4-5.0) gm/dl Globulin 3.3 (2.5-4.0) gm/dl Albumin/Globulin Ratio 1.2 (0.9-2) COVID-19 PCR (Negative) SARS-CoV-2 RNA (RT-PCR) 04/13/20 04/13/20 Range/Units 03:10 03:10 WBC (4.8-10.8) K/uL RBC (4.2-5.4) M/uL Hgb (12.0-16.0) g/dL Hct (37-47) % MCV (80-100) fL MCH (25-34) pg MCHC (32-36) g/dL RDW Std Deviation (36.4-46.3) fL RDW Coeff of Jonathan (11.5-14.5) % Plt Count (130-400) K/uL MPV (7.4-10.4) fL Immature Gran % (Auto) % Neut % (Auto) % Lymph % (Auto) % [place] % (Auto) % Eos % (Auto) % Baso % (Auto) % Immature Gran # (Auto) (0.00-0.02) K/uL Neut # (Auto) (1.4-6.5) K/uL Lymph # (Auto) (1.2-3.4) K/uL [place] # (Auto) (0.11-0.59) K/uL Eos # (Auto) (0-0.5) K/uL Baso # (Auto) (0-0.2) K/uL PT (9.0-12.0) Seconds INR (0.9-1.1) Sodium (136-145) mmol/L Potassium (3.5-5.1) mmol/L Chloride (98-107) mmol/L Carbon Dioxide (21-32) mmol/L Anion Gap (3-11) BUN (7-18) mg/dl Creatinine (0.6-1.2) mg/dl Est Cr Clr Drug Dosing Est GFR ( Amer) Est GFR (Non-Af Amer) BUN/Creatinine Ratio (10-20) Glucose (70-99) mg/dl Calcium (8.5-10.1) mg/dl Total Bilirubin (0.2-1) mg/dl AST (15-37) U/L ALT (12-78) U/L Alkaline Phosphatase (45-117) U/L Total Protein (6.4-8.2) gm/dl Albumin (3.4-5.0) gm/dl Globulin (2.5-4.0) gm/dl Albumin/Globulin Ratio (0.9-2) COVID-19 PCR NEGATIVE (Negative) SARS-CoV-2 RNA (RT-PCR) Cancelled Administered Medications Hydromorphone HCl (Dilaudid) 0.5 mg IV Q4H PRN PRN Reason: Pain Stop: 04/27/20 10:30 Last Admin: 04/13/20 17:30 Dose: 0.5 mg Documented by: [id number] Admin: 04/13/20 13:18 Dose: 0.5 mg Documented by: [id number] Dexamethasone Sodium Phosphate (8 mg/ Syringe) 2 mls @ 1 mls/min IV Q8H HAN Stop: 05/13/20 10:59 Last Admin: 04/13/20 18:39 Dose: 1 mls/min Documented by: [id number] Admin: 04/13/20 11:03 Dose: 1 mls/min Documented by: [id number] Ketorolac Tromethamine (Toradol) 15 mg IV Q6H PRN PRN Reason: Pain Stop: 04/14/20 09:25 Last Admin: 04/13/20 17:30 Dose: 15 mg Documented by: [id number] Admin: 04/13/20 11:11 Dose: 15 mg Documented by: [id number] Discontinued Medications Gadobutrol (Gadavist 65ml) 8 ml IV ONCE PRN PRN Reason: Interaction Checking Stop: 04/17/20 06:31 Last Admin: 04/13/20 05:42 Dose: 8 ml Documented by: [id number] Hydromorphone HCl (Dilaudid) 0.5 mg IV NOW STA Stop: 04/13/20 02:10 Last Admin: 04/13/20 02:59 Dose: 0.5 mg Documented by: [id number] Hydromorphone HCl (Dilaudid) 1 mg IV NOW STA Stop: 04/13/20 03:56 Last Admin: 04/13/20 04:08 Dose: 1 mg Documented by: [id number] Hydromorphone HCl (Dilaudid) 0.5 mg IV NOW STA Stop: 04/13/20 07:20 Last Admin: 04/13/20 07:35 Dose: 0.5 mg Documented by: [id number] Hydromorphone HCl (Dilaudid) 0.5 mg IV Q15M PRN PRN Reason: Pain Stop: 04/27/20 09:21 Last Admin: 04/13/20 09:59 Dose: 0.5 mg Documented by: [id number] Sodium Chloride (Nss) 500 mls @ 999 mls/hr IV .Q31M HAN Stop: 04/13/20 02:45 Last Infusion: 04/13/20 04:14 Dose: 0 mls/hr Documented by: [id number] Admin: 04/13/20 03:03 Dose: 999 mls/hr Documented by: [id number] Ketorolac Tromethamine (Toradol) 30 mg IV ONE STA Stop: 04/13/20 02:10 Last Admin: 04/13/20 02:57 Dose: 30 mg Documented by: [id number] Ondansetron HCl (Zofran) 4 mg IV NOW STA Stop: 04/13/20 02:10 Last Admin: 04/13/20 02:42 Dose: 4 mg Documented by: [id number] Discharge Plan Visit Data *Final* Discharge Date/Time: 04/13/20 10:05 Chief Complaint: Back Injury/Pain Stated Complaint: back pain ED Provider: Jenniffer Devi Discharge Problem: Degeneration of lumbar intervertebral disc with acute herniation, Intractable back pain Patient Disposition: Admitted As Inpatient Discharge Instructions Interventions: ED Discharge Assessment Last Done: 04/13/20 10:05
[2020-04-13] MEDS ORDERED: KETOROLAC TROMETHAMINE 15 MG/ML VIAL IV STA (02:09)
[2020-04-13] MEDS ORDERED: HYDROmorphone INJ 0.5 MG/0.5 ML SYR IV STA ×2 (02:09→07:19)
[2020-04-13] MEDS ORDERED: ONDANSETRON INJ 2 MG/ML 2 ML VIAL IV STA (02:09)
[2020-04-13] MEDS ORDERED: SODIUM CHLORIDE 0.9% 500 ML IV SCH (02:15)
[2020-04-13 02:58] LABS: Basophils # (auto) 0.01 K/uL (0-0.2); Basophils % (auto) 0.1 %; Eosinophils # (auto) 0.01 K/uL (0-0.5); Eosinophils % (auto) 0.1 %; Hematocrit (blood only) 38.8 % (37-47); Hemoglobin 12.8 g/dL (12.0-16.0); Immature Granulocytes # (auto) 0.01 K/uL (0.00-0.02); Immature Granulocytes % (auto) 0.1 %; Lymphocytes # (auto) 0.57 K/uL (1.2-3.4); Mean Corpuscular Hemoglobin 28.1 pg (25-34); Mean Corpuscular Volume 85.1 fL (80-100); Mean Platelet Volume 10.6 fL (7.4-10.4); Monocytes # (auto) 0.11 K/uL (0.11-0.59); Monocytes % (auto) 1.5 %; Neutrophils # (auto) 6.41 K/uL (1.4-6.5); Neutrophils % (auto) 90.2 %; Platelet Count 275 K/uL (130-400); RDW Coefficient of Variation 14.6 % (11.5-14.5); RDW Standard Deviation 45.3 fL (36.4-46.3); Red Blood Count 4.56 M/uL (4.2-5.4); White Blood Count 7.12 K/uL (4.8-10.8)
[2020-04-13 03:28] LABS: Alanine Aminotransferase 26 U/L (12-78); Albumin Level 4.1 gm/dl (3.4-5.0); Aspartate Aminotransferase 14 U/L (15-37); BUN Creatinine Ratio 19.6 (10-20); Blood Urea Nitrogen 15 mg/dl (7-18); Calcium 9.4 mg/dl (8.5-10.1); Carbon Dioxide 27 mmol/L (21-32); Chloride 104 mmol/L (98-107); Est GFR (African American) 101.3; Est GFR (Non-African American) 87.4; Glucose 142 mg/dl (70-99); Potassium 3.3 mmol/L (3.5-5.1); Sodium 137 mmol/L (136-145)
[2020-04-13 03:31] LABS: Albumin Globulin Ratio 1.2 (0.9-2); Alkaline Phosphatase 79 U/L (45-117); Bilirubin,Total 0.7 mg/dl (0.2-1); Globulin 3.3 gm/dl (2.5-4.0); Prothrombin Time 20.4 Seconds (9.0-12.0); Total Protein 7.4 gm/dl (6.4-8.2)
[2020-04-13] MEDS ORDERED: HYDROmorphone INJ 1 MG/ML SYRINGE IV STA (03:55)
[2020-04-13] MEDS ORDERED: GADOBUTROL 65ML VIAL IV PRN (06:32)
[2020-04-13] MEDS ORDERED: HYDROmorphone INJ 0.5 MG/0.5 ML SYR IV PRN (09:22)
--- NOTE | 2020-04-13 09:28 | History & Physical Report ---
Date of Service April 13, 2020 Assessment & Plan (1) Intractable back pain: This is a 54yo F with a PMH of recurrent portal vein thrombosis on Coumadin, Chastity 2 mutation, history of HIT and other medical problems listed below who presents with intractable back pain x 2 months. -Worsening lower back pain x 2 months, now with associated paresthesias of RLE -Lumbar spine MRI with right lateral disc herniation at L2-L3 with a superiorly extruded and likely sequestered fragment. This impinges on the transiting right- sided nerve roots. There is no significant central canal stenosis -Discussed with Dr. Mireles of orthopedic surgery, who will evaluate patient. Recommended 8mg Q8H Decadron -If patient requires surgery, must consider complex history with portal vein thrombosis, anticoagulation and h/o HIT following 2011 procedure -Pain control, scheduled decadron Q8H, continue home baclofen (2) Portal vein thrombosis: (3) CHASTITY-2 gene mutation: Follows with Dr. Land and Dr. Jaime. Anticoagulated with coumadin due to underlying JAK2 mutation -Reached out to GI for input regarding starting/stopping anticoagulation for PVT in setting of possible spinal surgery. Consider also discussing with hematology -INR is currently 2. Last coumadin dose was yesterday evening (4) HIT (heparin-induced thrombocytopenia): Developed HIT perioperatively during hysterectomy in [place] in June 2011 -Coumadin was bridged with heparin gtt and then Lovenox with significant platelet drop. [facility] heme was consulted and recommended Argatroban gtt with improvement of platelet count the following day Code status: FULL PCP: Jamila Murray Dispo: Admitted to med/surg. Plan to return home once medically stable. Patient seen in collaboration with Dr. King. Please see addendum. History of Present Illness Chief Complaint: back pain Primary Care Provider: Kaylin Murray, This is a 54yo F with a PMH of recurrent portal vein thrombosis on Coumadin, Chastity 2 mutation, history of HIT and other medical problems listed below who presents with intractable back pain x 2 months. Patient first noted a twinging back [place] that is gotten progressively worse. Uses a stand-up desk at work but since working from home for the past few months, has been sitting. Describes pain as originating in right lower back and radiating up spine and down bilateral legs, particularly outside of right leg. Endorses paresthesias in bilateral legs but no numbness. No bowel/bladder incontinence or saddle anesthesia. Denies history of spinal surgery. Was seen by PCP on 03/27 and prescribed prednisone taper with minimal improvement. Does not take NSAIDs due to chronic Coumadin anticoagulation due to recurrent portal vein thrombosis. Currently endorsing 5/10 pain after multiple doses of Dilaudid in the ED. Denies any fever, chills, lightheadedness, headache, chest pain, shortness of breath, nausea, vomiting, abdominal pain, dysuria, diarrhea or constipation. Of note, daughter with positive COVID test 10 days ago. Last week, patient endorsed fever, dizziness, headache and malaise which have all since resolved. Believes she had a low-grade fever as recently as yesterday. Rapid COVID-19 PCR test negative today. Patient with complex medical history of recurrent portal vein thrombosis diagnosed in 2008. 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 Land. Was evaluated by Dr. Jaime of [facility] onc for causes of hypercoagulability with a negative work-up except for positive CHASTITY 2 mutation. [facility] recommended lifelong Coumadin for likely underlying myeloproliferative disorder. Of note, patient underwent hysterectomy in [place] in June 2011 due to complex perioperative care and patient developed HIT during bridging with heparin gtt and then Lovenox. [facility] heme was consulted and recommended Argatroban gtt with improvement of platelet count the following day. Allergies Allergy/AdvReac Type Severity Reaction Status Date / Time heparin Allergy Severe "lethal" Verified 04/13/20 01:55 Sulfa (Sulfonamide Allergy Mild HIVES, RASH Verified 04/13/20 01:55 Antibiotics) sulfamethoxazole Allergy Mild HIVES, RASH Unverified 04/13/20 01:55 trimethoprim Allergy Mild HIVES, RASH Unverified 04/13/20 01:55 Milk Containing Products AdvReac Unknown Unknown Verified 04/13/20 09:32 meat AdvReac Unknown Uncoded 04/13/20 09:33 Home Medications Home Medications Medication Instructions Recorded Confirmed Type cholecalciferol (vitamin D3) 1,000 unit PO DAILY 07/05/18 04/13/20 History [Vitamin D3] cyanocobalamin (vitamin B-12) 1,000 mcg PO DAILY 07/05/18 04/13/20 History [Vitamin B-12] warfarin 10 mg PO DAILY 07/05/18 04/13/20 History baclofen 20 mg PO TID PRN 04/13/20 04/13/20 History Past Med/Surg History Social History Preferred Language: Citizen Of [place] Communication Ability: Effective Eye Technician Required: No Beliefs That Will Affect Care: None Current Living Situation: Family Current Living Situation Comment: daughter lives with patient Other Information That Helps Us Care for You: No Feels Safe at Home: Yes Safety Concerns: Feels Safe At This Time Smoking Status: Former smoker Do You Dip or Chew Tobacco: No ; Second Hand Exposure: No ; Tobacco Cessation Education Requested by Patient: No Hx Alcohol Use: No Hx Substance Use: No Review of Systems Review of Systems: At least ten systems reviewed and negative except as noted in the HPI. Physical Exam Physical Exam: General Appearance: WD/WN, vitals as above, in acute distress from pain, able to converse without issue Head: normocephalic, atraumatic Eyes: normal inspection, PERRL, conjunctivae normal, anicteric sclerae ENT: external ear and nose normal, oropharynx normal Neck: trachea midline, no thyromegaly normal visual inspection Respiratory: normal respiratory effort, lungs clear to auscultation, no wheeze, rales, rhonchi. Normal insp/exp effort, no accessory muscle use Cardiovascular: regular rate, rhythm, no murmur, normal peripheral pulses. Vessels: no JVD or carotid bruit Chest: normal inspection of chest Abdomen/GI: normal bowel sounds, soft, nontender, no hepatosplenomegaly Extremities/Musculoskeletal: TTP along lumbar spine. LLE 5/5 strength, RLE 4/5. + Decreased sensation lateral R hip/thigh. Able to cautiously ambulate Neurologic: PERRL, EOMI, accommodation nl, no face palsy, no dysarthria, CN's II-XI intact bilaterally and moves all extremities Psychiatric: A+Ox3, anxious Skin: no rashes, normal color, warm/dry Results & Data Results & Data ([facility]) Vital Signs (Past 12 Hours) Vital Signs Temp Pulse Pulse Resp BP Pulse Ox 04/13/20 08:00 69 20 105/69 98 04/13/20 07:30 66 16 108/66 97 04/13/20 07:01 90 17 112/94 97 04/13/20 07:00 79 14 98 04/13/20 06:30 75 16 111/78 92 04/13/20 06:09 70 16 115/71 96 04/13/20 04:30 73 15 102/64 98 04/13/20 04:00 14 116/83 97 04/13/20 03:48 37.2 C 76 20 97 04/13/20 03:30 18 121/63 97 04/13/20 03:08 20 116/67 97 04/13/20 01:34 37.7 C H 84 24 131/66 100 Laboratory Results Short CBC 04/13/20 04/13/20 04/13/20 Range/Units 02:35 02:35 02:35 WBC 7.12 (4.8-10.8) K/uL RBC 4.56 (4.2-5.4) M/uL Hgb 12.8 (12.0-16.0) g/dL Hct 38.8 (37-47) % MCV 85.1 (80-100) fL MCH 28.1 (25-34) pg MCHC 33.0 (32-36) g/dL RDW Std Deviation 45.3 (36.4-46.3) fL RDW Coeff of Jonathan 14.6 H (11.5-14.5) % Plt Count 275 (130-400) K/uL MPV 10.6 H (7.4-10.4) fL Immature Gran % (Auto) 0.1 % Neut % (Auto) 90.2 % Lymph % (Auto) 8.0 % [place] % (Auto) 1.5 % Eos % (Auto) 0.1 % Baso % (Auto) 0.1 % Immature Gran # (Auto) 0.01 (0.00-0.02) K/uL Neut # (Auto) 6.41 (1.4-6.5) K/uL Lymph # (Auto) 0.57 L (1.2-3.4) K/uL [place] # (Auto) 0.11 (0.11-0.59) K/uL Eos # (Auto) 0.01 (0-0.5) K/uL Baso # (Auto) 0.01 (0-0.2) K/uL PT 20.4 H (9.0-12.0) Seconds INR 2.0 H (0.9-1.1) Sodium 137 (136-145) mmol/L Potassium 3.3 L (3.5-5.1) mmol/L Chloride 104 (98-107) mmol/L Carbon Dioxide 27 (21-32) mmol/L Anion Gap 6.0 (3-11) BUN 15 (7-18) mg/dl Creatinine 0.78 (0.6-1.2) mg/dl Est Cr Clr Drug Dosing Not Reportable Est GFR ( Amer) 101.3 Est GFR (Non-Af Amer) 87.4 BUN/Creatinine Ratio 19.6 (10-20) Glucose 142 H (70-99) mg/dl Calcium 9.4 (8.5-10.1) mg/dl Total Bilirubin 0.7 (0.2-1) mg/dl AST 14 L (15-37) U/L ALT 26 (12-78) U/L Alkaline Phosphatase 79 (45-117) U/L Total Protein 7.4 (6.4-8.2) gm/dl Albumin 4.1 (3.4-5.0) gm/dl Globulin 3.3 (2.5-4.0) gm/dl Albumin/Globulin Ratio 1.2 (0.9-2) COVID-19 PCR (Negative) SARS-CoV-2 RNA (RT-PCR) 04/13/20 04/13/20 Range/Units 03:10 03:10 WBC (4.8-10.8) K/uL RBC (4.2-5.4) M/uL Hgb (12.0-16.0) g/dL Hct (37-47) % MCV (80-100) fL MCH (25-34) pg MCHC (32-36) g/dL RDW Std Deviation (36.4-46.3) fL RDW Coeff of Jonathan (11.5-14.5) % Plt Count (130-400) K/uL MPV (7.4-10.4) fL Immature Gran % (Auto) % Neut % (Auto) % Lymph % (Auto) % [place] % (Auto) % Eos % (Auto) % Baso % (Auto) % Immature Gran # (Auto) (0.00-0.02) K/uL Neut # (Auto) (1.4-6.5) K/uL Lymph # (Auto) (1.2-3.4) K/uL [place] # (Auto) (0.11-0.59) K/uL Eos # (Auto) (0-0.5) K/uL Baso # (Auto) (0-0.2) K/uL PT (9.0-12.0) Seconds INR (0.9-1.1) Sodium (136-145) mmol/L Potassium (3.5-5.1) mmol/L Chloride (98-107) mmol/L Carbon Dioxide (21-32) mmol/L Anion Gap (3-11) BUN (7-18) mg/dl Creatinine (0.6-1.2) mg/dl Est Cr Clr Drug Dosing Est GFR ( Amer) Est GFR (Non-Af Amer) BUN/Creatinine Ratio (10-20) Glucose (70-99) mg/dl Calcium (8.5-10.1) mg/dl Total Bilirubin (0.2-1) mg/dl AST (15-37) U/L ALT (12-78) U/L Alkaline Phosphatase (45-117) U/L Total Protein (6.4-8.2) gm/dl Albumin (3.4-5.0) gm/dl Globulin (2.5-4.0) gm/dl Albumin/Globulin Ratio (0.9-2) COVID-19 PCR NEGATIVE (Negative) SARS-CoV-2 RNA (RT-PCR) Cancelled BMP 04/13/20 02:35 Sodium 137 Potassium 3.3 L Chloride 104 Carbon Dioxide 27 BUN 15 Creatinine 0.78 Glucose 142 H Calcium 9.4 Liver Function 04/13/20 Range/Units 02:35 Total Bilirubin 0.7 (0.2-1) mg/dl AST 14 L (15-37) U/L ALT 26 (12-78) U/L Alkaline Phosphatase 79 (45-117) U/L Albumin 4.1 (3.4-5.0) gm/dl Supervising Physician Co-Signing Physician Notes HISTORY: Record reviewed. Patient interviewed and examined. Care coordinated with Elaine Alanis PA-C. Please refer to her documentation for complete history. Briefly, 54 YO female experiencing low back pain radiating to her RLE for 2 months. No heavy lifting or trauma. Symptoms worsening and not relieved by analgesics. ? RLE weakness. No bladder or bowel problems. EXAM: General- no distress Lungs- clear to auscultation; no respiratory distress Cardiovascular- RRR; ; no JVD; no pretibial edema Abdomen- + bowel sounds, soft, nontender Back- no spinal or paraspinal tenderness; + back pain with right SLR 30 degrees Extremities- no cyanosis; no calf tenderness Neuro- alert, oriented; ? mild weakness right hip flexion; patellar DTR's 2/2 bilat Skin- warm & dry DATA: K 3.3. INR 2.0. SARS-CoV-2 PCR negative. MRI lumbar spine: IMPRESSION: 1. There is a right lateral disc herniation at L2-L3 with a superiorly extruded and likely sequestered fragment. This impinges on the transiting right- sided nerve roots ASSESSMENT AND PLAN: Right L2-3 radiculopathy with worsening symptoms and MRI as noted. Received dexamethasone and analgesics in ED. Ortho Spine consulted. Hypokalemia. Follow. Replace as necessary. History of portal vein thrombosis x 2, last event about 9 years ago. Hypercoag work-up notable for CHASTITY-2 mutation. Has been on warfarin. INR 2.0. Will hold warfarin until surgical disposition determined. Discussed with Hematology. No need for bridging. SCD's for VTE prophylaxis while warfarin held and INR subtherapeutic. Please refer to ZEUS Alanis's documentation for discussion of other issues.
--- NOTE | 2020-04-13 09:37 | Communication Note ---
Date of Service: April 13, 2020 Pt to be admitted through the ED for management of T2 disc extrusion, surgical plan pending. GI asked for input regarding starting/stopping anticoagulation for PVT. Diagnosed w/ PVT in 2008 on imaging w/o evidence of Budd-Chiari. Heterozygous for CHASTITY-2 mutation, hypercoagulable work up negative at that time. She underwent liver biopsy which was negative for cirrhosis. Her PVT had resolved but later recurred w/ medication noncompliance. Repeat liver biopsy at that time without evidence of cirrhosis but was noted to have gastric varix on EGD in 2010/2011. She has been maintained on coumadin since. Pending surgical plan would recommend input from hematology. Of note she was previously bridged with Heparin for a surgical procedure but developed HIT. Will discuss with attending.
--- NOTE | 2020-04-13 09:56 | Magnetic Resonance Report ---
MRI OF THE LUMBAR SPINE COMBO CLINICAL HISTORY: Chronic low back pain. Right lower extremity radiculopathy. COMPARISON STUDY: Abdominal CT dated 07/05/2018. CT of the lumbar spine dated 09/09/2017. TECHNIQUE: MRI of lumbar spine is performed utilizing various T1 and T2-weighted sequences in the axi al, sagittal, and coronal planes. Contrast-enhanced sequences are acquired following the IV administr ation of 8 cc of Gadavist. FINDINGS: Lumbar spine: Vertebral body height is maintained throughout the lumbar spine. There is minimal retro listhesis at L2-L3 and L3-L4. Alignment is otherwise preserved. The transverse and spinous processes appear intact. No spondylolysis is seen. Small anterior and lateral marginal osteophytes are seen thr oughout. No destructive bony lesion is identified. A small hemangioma is noted in the body of T12. Intervertebral discs: Degenerative disc desiccation is noted throughout the lumbar spine. There is on ly minimal loss of height at L1-L2 and L2-L3. Spinal cord: The visualized spinal cord is normal in morphology and signal intensity. The conus medul adama terminates at the level of L1. The nerve roots of the cauda equina are normal in morphology. Th ere is abnormal postcontrast enhancement. L1-L2: Unremarkable. L2-L3: There is a disc herniation eccentric to the right with a superiorly extruded and likely seques tered fragment. This is best seen on axial image #7. The fragment measures at least 1.6 cm, and impin ges on the transiting right-sided nerve roots. There is nonspecific postcontrast enhancement surround ing this fragment. There is no significant central canal stenosis at this level. The described encroa ches on the right neural foramen. The neural foramina are otherwise clear. L3-L4: Mild facet arthropathy is of no consequence. The central canal and neural foramina are clear. There are bilateral facet joint effusions. L4-L5: There is minimal disc bulge eccentric to the left. The central canal and neural foramina are p atent. There are bilateral facet joint effusions. L5-S1: The central canal and neural foramina are clear. Facet arthropathy is of no consequence. A fac et joint effusion is noted on the right. Sacrum: The visualized sacrum is normal in morphology and signal intensity. Small Tarlov cysts measur e up to 1.4 cm. Soft tissues: The paraspinous soft tissues are normal as imaged. The retroperitoneal structures are g rossly unremarkable but incompletely assessed. The liver and spleen appear enlarged as seen on the co courtney sequence. IMPRESSION: 1. There is a right lateral disc herniation at L2-L3 with a superiorly extruded and likely sequestere d fragment. This impinges on the transiting right-sided nerve roots. 2. There is no significant central canal stenosis. 3. No destructive bony process is identified. 4. Additional findings as above. See discussion for detailed level by level analysis. Dictated: 04/13/2020 9:14 AM Transcribed: 04/13/2020 9:37 AM Fozia [id number] [email or web address] Electronically signed by: Ethan Mcclure M.D. 04/13/2020 9:54 AM
[2020-04-13] MEDS ORDERED: DEXAMETHASONE SOD INJ 4 MG/ML VIAL IV SCH (10:30)
[2020-04-13] MEDS ORDERED: BACLOFEN 20 MG TAB PO PRN (10:31)
[2020-04-13] MEDS ORDERED: ONDANSETRON INJ 2 MG/ML 2 ML VIAL IV PRN (10:31)
[2020-04-13] MEDS ORDERED: ACETAMINOPHEN 325 MG TAB PO PRN (10:31)
[2020-04-13] MEDS: DEXAMETHASONE SOD PHOSPHATE 8 MG in SYRINGE 0 ML IV SCH ×2 (11:03→18:39)
[2020-04-13] MEDS: KETOROLAC TROMETHAMINE 15 MG/ML VIAL IV PRN ×2 (11:11→17:30)
[2020-04-13] MEDS: HYDROmorphone INJ 0.5 MG/0.5 ML SYR IV PRN ×3 (13:18→21:39)
[2020-04-14] MEDS: DEXAMETHASONE SOD PHOSPHATE 8 MG in SYRINGE 0 ML IV SCH ×3 (03:29→19:50)
[2020-04-14] MEDS: KETOROLAC TROMETHAMINE 15 MG/ML VIAL IV PRN (03:29)
[2020-04-14] MEDS: HYDROmorphone INJ 0.5 MG/0.5 ML SYR IV PRN ×4 (03:30→19:23)
[2020-04-14 05:14] LABS: Hematocrit (blood only) 39.3 % (37-47); Hemoglobin 12.7 g/dL (12.0-16.0); Mean Corpuscular Hemoglobin 27.7 pg (25-34); Mean Corpuscular Hgb Conc 32.3 g/dL (32-36); Mean Corpuscular Volume 85.8 fL (80-100); Mean Platelet Volume 10.7 fL (7.4-10.4); Platelet Count 263 K/uL (130-400); RDW Coefficient of Variation 14.8 % (11.5-14.5); RDW Standard Deviation 46.2 fL (36.4-46.3); Red Blood Count 4.58 M/uL (4.2-5.4); White Blood Count 7.05 K/uL (4.8-10.8)
[2020-04-14 05:21] LABS: Prothrombin Time 20.3 Seconds (9.0-12.0)
[2020-04-14 06:15] LABS: BUN Creatinine Ratio 30.4 (10-20); Calcium 9.3 mg/dl (8.5-10.1); Creatinine Clr Calc Pharmacy 104.7 ml/min; Est GFR (African American) 116.6; Est GFR (Non-African American) 100.6; Potassium 4.7 mmol/L (3.5-5.1)
[2020-04-14] MEDS: CYANOCOBALAMIN 500 MCG TABLET (VITAMIN B-12) PO SCH (08:22)
[2020-04-14] MEDS: CHOLECALCIFEROL 1,000 UNITS 25 MCG TAB PO SCH (08:22)
--- NOTE | 2020-04-14 10:51 | Hospitalist Progress Note ---
Date of Service April 14, 2020 Assessment & Plan (1) Degeneration of lumbar intervertebral disc with acute herniation: MRI reveals right lateral disc herniation at L2-3 with a superiorly extruded and likely sequestered fragment impinging on the right-sided nerve roots. Per Dr. Mireles, she has had a good response to steroids overnight, and he is hopeful she will not require surgery. will continue with conservative management at this time including continued decadron and pain control. PT/OT to assess for safety. Transition to oral pain regimen in preparation for dc to home in am. Scheduled tylenol with oxy for breakthrough as needed. (2) CHASTITY-2 gene mutation: Follows with Dr. Land and Dr. Jaime. Anticoagulated with coumadin due to underlying JAK2 mutation. Per prior provider's discussion with video game technician, no bridging would be required. Coumadin was held and then now it has been restarted with no planned procedure. Cont to monitor INR daily while hospitalized. h/o HIT in the past. (3) DVT prophylaxis: Coumadin Full Code Dispo-to home in am. Janet Goodwin DO [facility] Hospitalist Admission and Anticipated Discharge Date Admission Date: April 13, 2020 Subjective Improvement in pain since yesterday using dilaudid and decadron 8mg IV TID she is ambulating cautiously tolerating PO reports numbness in right thigh per ortho spine, no surgery indicated at this time. Review of Systems Review of Systems: All systems reviewed & are unremarkable except as noted in Subjective Physical Exam Physical Exam: CONSTITUTIONAL: WNWD, vitals as above, generally well- appearing EYES: normal conjunctivae, no scleral icterus ENT: external ear and nose normal, MMM NECK: trachea midline RESPIRATORY: clear to auscultation bilaterally, no crackles, rales or wheezes, normal respiratory effort CARDIOVASCULAR: regular rate and rhythm, S1 and 2 heard without murmurs, gallops or rubs, no JVD, no peripheral edema GASTROINTESTINAL: soft, nontender, nondistended MUSCULOSKELETAL: strength 5/5 throughout, head is normocephalic and atraumatic, nontender paraspinal musculature to palpation SKIN: warm and dry NEUROLOGIC: patellar DTRs 2+ bilat. Achilles reflex 2+ bilat. NEG SLR test on the right. Decreased sensation on right anterior thigh compared to left. no facial palsy, no dysarthria. CN 2-12 grossly intact, no sensory deficit, normal cognition, normal speech, no tremor PSYCHIATRIC: alert cooperative and oriented to person, place and time. Results & Data Results & Data ([facility]) Vital Signs (Past 12 Hours) Vital Signs Temp Pulse Resp BP Pulse Ox 04/14/20 07:30 36.7 C 67 16 123/76 98 04/13/20 22:58 36.9 C 63 16 100/64 96 Laboratory Results Short CBC 04/14/20 Range/Units 04:48 WBC 7.05 (4.8-10.8) K/uL Hgb 12.7 (12.0-16.0) g/dL Hct 39.3 (37-47) % Plt Count 263 (130-400) K/uL BMP 04/14/20 04:48 Sodium 138 Potassium 4.7 D Chloride 108 H Carbon Dioxide 25 BUN 21 H Creatinine 0.68 Glucose 138 H Calcium 9.3 Medications Administered Current Inpatient Medications Acetaminophen (Tylenol) 650 mg PO Q4H PRN PRN Reason: pain/fever Stop: 05/13/20 10:30 Baclofen (Lioresal) 20 mg PO TID PRN PRN Reason: Muscle Spasm Stop: 05/13/20 10:30 Cyanocobalamin (Vitamin B-12) 1,000 mcg PO DAILY HAN Stop: 05/14/20 08:59 Last Admin: 04/14/20 08:22 Dose: 1,000 mcg Documented by: Hydromorphone HCl (Dilaudid) 0.5 mg IV Q4H PRN PRN Reason: Pain Stop: 04/27/20 10:30 Last Admin: 04/14/20 08:23 Dose: 0.5 mg Documented by: Dexamethasone Sodium Phosphate (8 mg/ Syringe) 2 mls @ 1 mls/min IV Q8H HAN Stop: 05/13/20 10:59 Last Admin: 04/14/20 10:46 Dose: 1 mls/min Documented by: Ondansetron HCl (Zofran) 4 mg IV Q6H PRN PRN Reason: Nausea Stop: 05/13/20 10:30 Polyethylene Glycol (Miralax Powder Packet) 17 gm PO DAILY PRN PRN Reason: Constipation Stop: 05/13/20 10:30 Vitamin D (Vitamin D3) 1,000 units PO DAILY HAN Stop: 05/14/20 08:59 Last Admin: 04/14/20 08:22 Dose: 1,000 units Documented by:
--- NOTE | 2020-04-14 15:35 | Orthopedic Consultation ---
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 This is causing significant L2 and L3 neural compression consistent with her presentation. Long discussion with this patient reviewing MRI and clinical course. She is recent received IV Decadron and responded positively. I strongly suspect she will heal without requiring surgical intervention. She will maintain on IV Decadron while in the hospital go home with a Medrol Dosepak we will see her back in the office in approximately 1 to 2 weeks. If symptoms return we may consider a lumbar epidural. We both agree that avoiding surgical intervention is desirable. Present on Admission?: Yes History of Present Illness Reason for Consultation: Back and right leg pain Attending Physician: Janet Goodwin, DO History of Present Illness This is a 54-year-old female who presents the emergency room yesterday with severe onset of back and right anterior thigh pain. She denies any specific trauma fall or event. Is been incapacitating for the past 2 days. Is described involving the lumbosacral junction in the buttock right anterior thigh and groin. Does not extend below the knee. Left lower extremity is asymptomatic. She does have a history of a back injury occurring in 2010 for which she is undergone several years of management. This is a new symptom complex. She has been started on IV Decadron approximately 12 hours ago and noting significant improvement in her pain. She now only describes a numbness and tingling. Allergies Allergy/AdvReac Type Severity Reaction Status Date / Time heparin Allergy Severe "lethal" Verified 04/13/20 01:55 Sulfa (Sulfonamide Allergy Mild HIVES, RASH Verified 04/13/20 01:55 Antibiotics) sulfamethoxazole Allergy Mild HIVES, RASH Unverified 04/13/20 01:55 trimethoprim Allergy Mild HIVES, RASH Unverified 04/13/20 01:55 Milk Containing Products AdvReac Unknown Unknown Verified 04/13/20 09:32 meat AdvReac Unknown Uncoded 04/13/20 09:33 Home Medications Home Medications Medication Instructions Recorded Confirmed Type cholecalciferol (vitamin D3) 1,000 unit PO DAILY 07/05/18 04/13/20 History [Vitamin D3] cyanocobalamin (vitamin B-12) 1,000 mcg PO DAILY 07/05/18 04/13/20 History [Vitamin B-12] warfarin 10 mg PO DAILY 07/05/18 04/13/20 History baclofen 20 mg PO TID PRN 04/13/20 04/13/20 History Patient History Social History Preferred Language: Mauritian Communication Ability: Effective Spray Gunner Required: No Beliefs That Will Affect Care: None Current Living Situation: Family Current Living Situation Comment: daughter lives with patient Other Information That Helps Us Care for You: No Feels Safe at Home: Yes Safety Concerns: Feels Safe At This Time Smoking Status: Former smoker Do You Dip or Chew Tobacco: No ; Second Hand Exposure: No ; Tobacco Cessation Education Requested by Patient: No Hx Alcohol Use: No Hx Substance Use: No Physical Exam Physical Exam: Patient is sitting in bed. She is more comfortable at this time. She exhibiting weakness to right hip flexion compared to left but a 5 or 5 plantar flexion dorsiflexion extensor hallucis longus bilaterally. Results & Data ([facility]) Vital Signs (Past 12 Hours) Vital Signs Temp Pulse Resp BP Pulse Ox 04/14/20 15:30 79 16 107/72 94 04/14/20 07:30 36.7 C 67 16 123/76 98
[2020-04-14] MEDS ORDERED: OXYCODONE/ACETAMINOPHEN 5mg/325mg TAB PO PRN (16:21)
[2020-04-14] MEDS ORDERED: OXYCODONE HCL IR 5 MG TAB (IMMEDIATE RELEASE) PO PRN (16:43)
[2020-04-14] MEDS: POLYETHYLENE (MIRALAX) 17 GM PACK PO PRN (17:13)
[2020-04-14] MEDS: WARFARIN SOD 10 MG TAB PO SCH (17:13)
[2020-04-14] MEDS: ACETAMINOPHEN 500 MG TAB PO SCH (17:18)
[2020-04-15] MEDS: ACETAMINOPHEN 500 MG TAB PO SCH ×3 (00:11→15:48)
[2020-04-15] MEDS: POLYETHYLENE (MIRALAX) 17 GM PACK PO PRN (00:12)
[2020-04-15] MEDS: HYDROmorphone INJ 0.5 MG/0.5 ML SYR IV PRN ×3 (00:12→16:52)
[2020-04-15] MEDS ORDERED: LACTULOSE SYRUP 20 GM/30 ML UDC PO STA (00:45)
[2020-04-15] MEDS ORDERED: MAGNESIUM HYDROXIDE SUSP 30 ML UDC PO PRN (01:01)
[2020-04-15] MEDS: DOCUSATE SODIUM/SENNA 50/8.6MG TAB PO SCH ×2 (01:35→07:57)
[2020-04-15] MEDS: DEXAMETHASONE SOD PHOSPHATE 8 MG in SYRINGE 0 ML IV SCH ×3 (03:26→16:54)
[2020-04-15 05:23] LABS: Hematocrit (blood only) 38.2 % (37-47); Mean Corpuscular Hemoglobin 27.4 pg (25-34); Mean Corpuscular Hgb Conc 31.4 g/dL (32-36); Mean Corpuscular Volume 87.2 fL (80-100); Platelet Count 297 K/uL (130-400); RDW Standard Deviation 48.1 fL (36.4-46.3); Red Blood Count 4.38 M/uL (4.2-5.4); White Blood Count 8.59 K/uL (4.8-10.8)
[2020-04-15 05:32] LABS: Prothrombin Time 20.6 Seconds (9.0-12.0)
[2020-04-15 05:54] LABS: BUN Creatinine Ratio 32.3 (10-20); Calcium 9.1 mg/dl (8.5-10.1); Creatinine Clr Calc Pharmacy 106.2 ml/min; Est GFR (African American) 117.1; Est GFR (Non-African American) 101.1; Potassium 4.6 mmol/L (3.5-5.1)
[2020-04-15] MEDS: CYANOCOBALAMIN 500 MCG TABLET (VITAMIN B-12) PO SCH (07:57)
[2020-04-15] MEDS: CHOLECALCIFEROL 1,000 UNITS 25 MCG TAB PO SCH (07:57)
[2020-04-15] MEDS: WARFARIN SOD 10 MG TAB PO SCH (15:47)
--- NOTE | 2020-04-15 17:11 | Discharge Summary ---
Date of Service April 15, 2020 Admission HPI Per Admitting Provider This is a 54yo F with a PMH of recurrent portal vein thrombosis on Coumadin, Chastity 2 mutation, history of HIT and other medical problems listed below who presents with intractable back pain x 2 months. Patient first noted a twinging back pain 2 months ago near [facility] that is gotten progressively worse. Uses a stand-up desk at work but since working from home for the past few months, has been sitting. Describes pain as originating in right lower back and radiating up spine and down bilateral legs, particularly outside of right leg. Endorses paresthesias in bilateral legs but no numbness. No bowel/bladder incontinence or saddle anesthesia. Denies history of spinal surgery. Was seen by PCP on 03/27 and prescribed prednisone taper with minimal improvement. Does not take NSAIDs due to chronic Coumadin anticoagulation due to recurrent portal vein thrombosis. Currently endorsing 5/10 pain after multiple doses of Dilaudid in the ED. Denies any fever, chills, lightheadedness, headache, chest pain, shortness of breath, nausea, vomiting, abdominal pain, dysuria, diarrhea or constipation. Of note, daughter with positive COVID test 10 days ago. Last week, patient endorsed fever, dizziness, headache and malaise which have all since resolved. Believes she had a low-grade fever as recently as yesterday. Rapid COVID-19 PCR test negative today. Patient with complex medical history of recurrent portal vein thrombosis diagnosed in 2008. 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 Land. Was evaluated by Dr. Jaime of [facility] onc for causes of hypercoagulability with a negative work-up except for positive CHASTITY 2 mutation. Heme recommended lifelong Coumadin for likely underlying myeloproliferative disorder. Of note, patient underwent hysterectomy in [place] in June 2011 due to complex perioperative care and patient developed HIT during bridging with heparin gtt and then Lovenox. [facility] heme was consulted and recommended Argatroban gtt with improvement of platelet count the following day. Admission Exam Per Admitting Provider This is a 54yo F with a PMH of recurrent portal vein thrombosis on Coumadin, Chastity 2 mutation, history of HIT and other medical problems listed below who presents with intractable back pain x 2 months. Patient first noted a twinging back pain 2 months ago near [facility] that is gotten progressively worse. Uses a stand-up desk at work but since working from home for the past few months, has been sitting. Describes pain as originating in right lower back and radiating up spine and down bilateral legs, particularly outside of right leg. Endorses paresthesias in bilateral legs but no numbness. No bowel/bladder incontinence or saddle anesthesia. Denies history of spinal surgery. Was seen by PCP on 03/27 and prescribed prednisone taper with minimal improvement. Does not take NSAIDs due to chronic Coumadin anticoagulation due to recurrent portal vein thrombosis. Currently endorsing 5/10 pain after multiple doses of Dilaudid in the ED. Denies any fever, chills, lightheadedness, headache, chest pain, shortness of breath, nausea, vomiting, abdominal pain, dysuria, diarrhea or constipation. Of note, daughter with positive COVID test 10 days ago. Last week, patient endorsed fever, dizziness, headache and malaise which have all since resolved. Believes she had a low-grade fever as recently as yesterday. Rapid COVID-19 PCR test negative today. Patient with complex medical history of recurrent portal vein thrombosis di agnosed in 2008. 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 Land. Was evaluated by Dr. Jaime of [facility] onc for causes of hypercoagulability with a negative work-up except for positive CHASTITY 2 mutation. [facility] recommended lifelong Coumadin for likely underlying myeloproliferative disorder. Of note, patient underwent hysterectomy in [place] in June 2011 due to complex perioperative care and patient developed HIT during bridging with heparin gtt and then Lovenox. [facility] heme was consulted and recommended Argatroban gtt with improvement of platelet count the following day. Principal Diagnosis L2-3 disc herniation Discharge Exam CONSTITUTIONAL: WNWD, vitals as above, generally well-appearing EYES: normal conjunctivae, no scleral icterus ENT: external ear and nose normal, MMM NECK: trachea midline RESPIRATORY: clear to auscultation bilaterally, no crackles, rales or wheezes, normal respiratory effort CARDIOVASCULAR: regular rate and rhythm, S1 and 2 heard without murmurs, gallops or rubs, no JVD, no peripheral edema GASTROINTESTINAL: soft, nontender, nondistended MUSCULOSKELETAL: strength 5/5 throughout, head is normocephalic and atraumatic, nontender paraspinal musculature to palpation, ambulatory SKIN: warm and dry NEUROLOGIC: NEG SLR test on the right. Decreased sensation on right anterior thigh compared to left. no facial palsy, no dysarthria. CN 2-12 grossly intact, no sensory deficit, normal cognition, normal speech, no tremor PSYCHIATRIC: alert cooperative and oriented to person, place and time. Discharge Data Allergies Allergy/AdvReac Type Severity Reaction Status Date / Time heparin Allergy Severe "lethal" Verified 04/13/20 01:55 Sulfa (Sulfonamide Allergy Mild HIVES, RASH Verified 04/13/20 01:55 Antibiotics) sulfamethoxazole Allergy Mild HIVES, RASH Unverified 04/13/20 01:55 trimethoprim Allergy Mild HIVES, RASH Unverified 04/13/20 01:55 Milk Containing Products AdvReac Unknown Unknown Verified 04/13/20 09:32 meat AdvReac Unknown Uncoded 04/13/20 09:33 Consultations 04/13/20 07:30 ED Decision to Admit Stat 04/13/20 10:31 Consult Orthopedic Surgery Routine Ordered Studies 04/13/20 05:38 MR lumbar spine wo/w con Urgent Hospital Course (1) 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 MRI revealed right lateral disc herniation at L2-3 with a superiorly extruded and likely sequestered fragment impinging on the right-sided nerve roots. Per Dr. Mireles, she had a good response to steroids overnight, and he is hopeful she will not require surgery. Will continue with conservative management at this time including Medrol, Tylenol scheduled and oxycodone for breakthrough severe pain. She is ambulatory. Although PT and OT were consulted, she was not seen by them. However, she was ambulating independently and verbalized that she felt well enough to return home. May require outpatient physical therapy, which may be ordered by her PCP on follow-up in one week. (2) CHASTITY-2 gene mutation: Total Time Total Time Spent Total Time Spent (In Minutes): 60 Total Time Includes: Examination of the Patient, Discharge Planning, Medication Reconciliation and Communication With Other Providers Discharge Plan Discharge Items Patient Disposition: Home - Self-Care Reason For Visit: L2-L3 DISC EXTRUSION Discharge Diagnosis: lower back pain 2/2 herniated disc Condition on Discharge: Good Activity: As commented below Lifting: Gradually increase as tolerated and No more than 10 pounds Bathing: No limitations Driving/Machine Use: No limitations Non-emergency contact: Primary Care Provider Call non-emergency contact if: you have any medication questions, your symptoms worsen, your pain is not controlled, your pain is worsening, your pain is un usual for you, your pain is concerning for you and you have a fever Follow-up/Referrals: Kaylin Murray DO [Primary Care Provider] - 04/21/20 10:40 am (04/21/2020 10:40 AM Provider Tacos Olivares DO Department [facility] ) Diet: Regular Addtl Attending Provider Instructions: Please take all medications as instructed on discharge list below. Please follow-up with primary care physician at time/date listed above. You may need a referral to see Dr. Mireles, Orthopedic Spine surgeon, which may be placed at this time. Additionally, outpatient physical therapy may be ordered here. You will need to follow-up here also to ensure your pain is improved and you are progressing clinically. As we discussed, it is recommended that you not work until your follow-up with outpatient provider, which may take up to 1-2 weeks. Please do not work or drive while under the influence of narcotics. It is recommended to use ACETAMINOPHEN (TYLENOL) up to 3000mg daily as a non- narcotic pain control option. If you become constipated on narcotics, you may find relief with MIRALAX over the counter (OTC) medication, a gentle laxative. You may also opt to take OTC DOCUSATE, which is a stool softener while on narcotics. It was a pleasure taking care of you! Please call if you have any questions or problems. You can reach a [facility] hospitalist on duty at [facility] 24 hours a day by calling [phone]. Take care of yourself. Janet Goodwin DO [facility] Hospitalist Pending Studies at Discharge: No Stand-Alone Forms: My [facility], Work/School Release (Inpt), Smoking Cessation Medications and DC Order Prescriptions: New oxycodone 5 mg Tablet 5 mg PO Q4H PRN (Reason: severe pain) Qty: 15 RF: 0 methylprednisolone [Medrol (Chuck)] 4 mg tablets,dose pack See Rx Instructions .ROUTE .COMPLEX Qty: 21 RF: 0 Continued baclofen 20 mg tablet 20 mg PO TID PRN (Reason: Muscle Spasm) RF: 0 warfarin 5 mg tablet 10 mg PO DAILY RF: 0 cyanocobalamin (vitamin B-12) [Vitamin B-12] 1,000 mcg Tablet 1,000 mcg PO DAILY RF: 0 cholecalciferol (vitamin D3) [Vitamin D3] 1,000 unit Capsule 1,000 unit PO DAILY RF: 0 Discharge Orders: Discharge Order (Routine); Ordered 04/15/20 Ordered By: Janet Goodwin Admission Data Admit Date/Time: 04/13/20 09:46 Attending Provider: Janet Goodwin Admit Provider: Rodríguez King Primary Care Provider: Kaylin Murray Other Providers: Rodríguez King ; Wayne Mireles
== END 2020-04-15 18:17 | disposition home or self-care (01) | DRG 552 ==
LOC: ED 01:22 → SUATTDRO 09:46 → 3W 09:46